=== PATIENT | female | born 1950 | race Caucasian/White ===

== ENCOUNTER 2020-02-13 10:38 | Emergency (ER) | payer MEDICARE ==
[~2020-02-13] VITALS: Ht 167.6 cm; Wt 85.7 kg
--- NOTE | 2020-02-13 12:17 | Emergency Department Note ---
History of Present Illnes History of Present Illness Chief Complaint: Laceration History of Present Illness This is a 69 year old female PATIENT IN FROM [facility]; STATES WAS WALKIN G TO HER CAR AND MISSED A STEP, TRIPPED AND FELL, HITTING HER HEAD ON THE CONCRETE. DENIES LOC, NAUSEA, VOMITING, OR DIZZINESS.. Historian: Patient Arrival Mode: Car Hooker Laster Required: No Onset (how long ago): minute(s) Location: LEFT PERIORBITAL AREA Quality: PAIN Radiation: Reports non-radiation Severity: mild Onset quality: sudden Timing of current episode: constant Progression: unchanged Chronicity: new Context: Denies recent illness Relieving factors: none Exacerbating factors: none Associated symptoms: Reports denies other symptoms Treatments prior to arrival: none Past Medical/Family History Physician Review I have reviewed the patient's past medical and family history. Any updates have been documented here. Past Medical History Recent Fever: No Clinical Suspicion of Infectio: No New/Unexplained Change in Ment: No Past Medical History: GERD, Chronic Back Pain Other Medical History: CHRONIC BRONCHITIS GI ULCERS GI BLEEDING SEASONAL ALLERGIES Other Surgery: BILAT CARPAL TUNNEL Social History Smoking Cessation: Never Smoker Counseling Performed: No Alcohol Use: None Any Illegal Drug Use: No TB Exposure/Symptoms: No Physically hurt or threatened: No Family History Family history of heart diseas: No Other Last Tetanus: UTD Any Pre-Existing Lines (PICC,: No Review of Systems Review of Systems Constitutional: Reports no symptoms EENTM: Reports as per HPI Cardiovascular: Reports no symptoms Respiratory: Reports no symptoms Gastrointestinal: Reports no symptoms Genitourinary: Reports no symptoms Musculoskeletal: Reports back pain (CHRONIC) Integumentary: Reports no symptoms Neurological: Reports no symptoms Psychological: Reports no symptoms Endocrine: Reports no symptoms Hematological/Lymphatic: Reports no symptoms Physical Exam Related Data Allergies: Coded Allergies: Penicillins (Verified Allergy, Mild, 02/13/20) cephalexin (Verified Allergy, Mild, 02/13/20) codeine (Verified Allergy, Mild, 02/13/20) prednisone (Verified Allergy, Mild, 02/13/20) Triage Vital Signs Vital Signs Date Time Temp Pulse Resp B/P (MAP) Pulse Ox O2 Delivery O2 Flow Rate FiO2 02/13/20 10:39 96.3 76 20 175/72 97 Vital signs reviewed: Yes Physical Exam CONSTITUTIONAL Constitutional: Present well-developed, Present well-nourished HENT HENT: Present oropharynx clear/moist, Present oropharynx normal HENT L/R: Present left ext ear normal, Present right ext ear normal EYES Eyes: Reports PERRL, Reports conjunctivae normal, Reports EOM normal, Reports other (SUPRAORBITAL/UPPER LID ECCHYMOSIS, 1.5 CM LINEAR SUPERFICIAL LAC SUPERIOR AND SLIGHTLY LATERAL TO LEFT EYE, ABRASION LATERAL TO LEFT EYE ON UPPER CHEEK, AND PUNCTATE ABRASION TO LEFT UPPER LID); Denies left eye discharge, Denies right eye discharge NECK Neck: Present ROM normal PULMONARY Pulmonary: Present effort normal, Present breath sounds normal CARDIOVASCULAR Cardiovascular: Present regular rhythm, Present heart sounds normal, Present capillary refill normal, Present normal rate GASTROINTESTINAL Abdominal: Present soft, Present nontender, Present bowel sounds normal GENITOURINARY Genitourinary: Present exam deferred SKIN Skin: Present warm, Present dry MUSCULOSKELETAL Musculoskeletal: Present ROM normal NEUROLOGICAL Neurological: Present alert, Present oriented x 3, Present no gross motor or sensory deficits PSYCHOLOGICAL Psychological: Present mood/affect normal, Present judgement normal Results Imaging Imaging results reviewed: Yes Impressions CT BRAIN Impression: 1. Acute left periorbital superficial hematoma. 2. No fractures. 3. No acute intracranial abnormalities. 4. 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 No acute hydrocephalus Signed by: Dr. Arturo Magallon M.D. on 02/13/2020 12:[address]/CT MAXIO FAC/PARANAS WO IMPRESSION: 1. Acute left periorbital superficial hematoma. 2. No fractures. 3. No additional acute maxillofacial abnormalities. 4. Please refer to the head and cervical spine CTs obtained at the same time. Signed by: Dr. Arturo Magallon M.D. on 02/13/2020 12:[address]/CT CERVICAL SPINE WO IMPRESSION: 1. No acute abnormalities. 2. Bones demineralized but no fractures 3. Cannot adequately evaluate for ligament, spinal cord and or vascular abnormalities. 4. Degenerative changes as described. Signed by: Dr. Arturo Magallon M.D. on 02/13/2020 1:[address]/CT LUMBAR SPINE WO IMPRESSION: 1. Bones moderately demineralized. 2. No fractures. 3. Cannot adequately evaluate for conus, cauda equina, ligament or vascular injuries. Chronic degenerative changes: * Degenerated discs, worst right from L2 to L3 and left from L3 to L5 due to a left curvature at L1. * Severe degenerative spinal canal stenosis at L4-5. * Superimposed foraminal stenosis from L1-S1 is worst bilaterally at L1-L2, on the right at L3-4 and bilaterally at L4-5 and at L5-S1. * No disc herniations Signed by: Dr. Arturo Magallon M.D. on 02/13/2020 1:05 PM Procedures Laceration Laceration: Laceration 1 Site: face (LATERAL AND SUPERIOR TO LEFT EYE) Side: left Size (cm): 1.5 Description: linear Depth: simple, single layer Amount of anesthesia (mL): 0 Skin layer closed with: other (SURGICAL GLUE) Number of sutures: 0 Assessment & Plan Medical Decision Making MDM MECHANICAL FALL, LAC TO FACE, LEFT PERIORBITAL SWELLING AND ECCHYMOSIS - CHECK CT FACE, HEAD, C-SPINE. SHE ALSO C/O CHRONIC LBP WITH SCIATICA AND REQUESTS IMAGING - WILL GET CT L SPINE Reassessment Reassessment DC HOME, DERMABOND INSTRUCTIONS, F/U PCP TOMORROW Assessment & Plan Final Impression: (1) Fall (2) Laceration of face (3) Contusion, periorbital Depart Disposition: HOME, SELF-CARE Last Vital Signs Date Time Temp Pulse Resp B/P (MAP) Pulse Ox O2 Delivery O2 Flow Rate FiO2 02/13/20 10:39 96.3 76 20 175/72 97 ROBBIN PEREIRA MD Feb 13, 2020 12:17
--- NOTE | 2020-02-13 12:42 | Diagnostic Imaging Report ---
History:Fall Comparison studies: None Technique: Axial images were obtained from the skull base to the vertex. Coronal and sagittal images reconstructed from the axial data. Dose modulation, iterative reconstruction, and/or weight based adjustment of the mA/kV was utilized to reduce the radiation dose to as low as reasonably achievable. Intravenous contrast: None Findings: Scalp/skull: An acute left periorbital superficial hematoma is not associated with subcutaneous emphysema or with hyperdense foreign bodies. No underlying fractures. Extra-axial spaces: No masses. No fluid collections. Brain sulci: Mildly prominent. 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 The rest of the ventricular system is mildly dilated but there is no acute hydrocephalus. Parenchyma: No abnormal densities No masses, hemorrhage, acute or chronic cortical vascular insults. Sellar/suprasellar region: No abnormalities. Craniocervical junction: Patent foramen magnum. No Chiari one malformation. Impression: 1. Acute left periorbital superficial hematoma. 2. No fractures. 3. No acute intracranial abnormalities. 4. 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 No acute hydrocephalus Signed by: Dr. Arturo Magallon M.D. on 02/13/2020 12:39 PM
--- NOTE | 2020-02-13 12:45 | Diagnostic Imaging Report ---
History:Trauma Comparison studies: None Technique: Axial images were obtained through the maxillofacial region. Coronal and sagittal images reconstructed from the axial data. Dose modulation, iterative reconstruction, and/or weight based adjustment of the mA/kV was utilized to reduce the radiation dose to as low as reasonably achievable. Intravenous contrast: None Findings: Soft tissues: An acute left periorbital superficial hematoma is associated with a punctate superficial air focus consistent with a superficial laceration but no hyperdense foreign bodies. Bones: No fractures or bone abnormalities. Orbits: Globes: Intact Extra or intraconal abnormalities: None. Paranasal sinuses: Clear IMPRESSION: 1. Acute left periorbital superficial hematoma. 2. No fractures. 3. No additional acute maxillofacial abnormalities. 4. Please refer to the head and cervical spine CTs obtained at the same time. Signed by: Dr. Arutro Magallon M.D. on 02/13/2020 12:42 PM
--- NOTE | 2020-02-13 13:08 | Diagnostic Imaging Report ---
History: Fall Comparison studies: None Technique: Axial images were obtained from inferior T9 through the sacrum.. Coronal and sagittal images reconstructed from the axial data. Dose modulation, iterative reconstruction, and/or weight based adjustment of the mA/kV was utilized to reduce the radiation dose to as low as reasonably achievable. Intravenous contrast: None Findings: Number of non-rib bearing vertebral bodies: 5 Alignment: Left curvature centered at L1 is associated with 2 mm retrolisthesis of L1 on L2, 2 mm anterolisthesis of L3 on L4 and 4 mm anterolisthesis of L4 on L5. Soft tissues: No abnormalities. Paraspinal muscles: Unremarkable. Vertebrae: Bones moderately demineralized. No fractures, infection or neoplasm. Degenerative changes: T12-L1: Moderately degenerated disc worse on the right due to the curvature. Patent spinal canal and foramina. No disc herniation. L1-L2: Moderately degenerated disc, worse on the right due to the curvature. Moderate bilateral foraminal stenosis due to endplate osteophytes and a retrolisthesis of L1 on L2. Patent spinal canal. No disc herniation. L2-L3: Mildly degenerated disc. Mild bilateral foraminal stenosis due to a disc bulge and endplate osteophytes. Patent bilateral canal. No disc herniation. L3-L4: Mildly degenerated disc, worse left due to the curvature. Mild spinal canal stenosis and foraminal stenosis, moderate right, mild left, due to a disc bulge, endplate osteophytes and facet arthrosis. No disc herniation. L4-L5: Moderately degenerated disc, worse on the left due to the curvature. Severe spinal canal stenosis and foraminal stenosis, moderate right, severe left is due to an asymmetric disc bulge, endplate osteophytes and facet arthrosis and related to the curvature. No disc herniation. L5-S1: Moderately degenerated disc. Mild spinal canal stenosis but severe bilateral foraminal stenosis is due to a disc bulge, endplate osteophytes and facet arthrosis. No disc herniation. Sacroiliac joints: Mildly degenerated bilaterally. IMPRESSION: 1. Bones moderately demineralized. 2. No fractures. 3. Cannot adequately evaluate for conus, cauda equina, ligament or vascular injuries. Chronic degenerative changes: * Degenerated discs, worst right from L2 to L3 and left from L3 to L5 due to a left curvature at L1. * Severe degenerative spinal canal stenosis at L4-5. * Superimposed foraminal stenosis from L1-S1 is worst bilaterally at L1-L2, on the right at L3-4 and bilaterally at L4-5 and at L5-S1. * No disc herniations Signed by: Dr. Arturo Magallon M.D. on 02/13/2020 1:05 PM
--- NOTE | 2020-02-13 13:09 | Diagnostic Imaging Report ---
History: Fall Comparison studies: None Technique: Axial images were obtained through the cervical region.. Coronal and sagittal images reconstructed from the axial data. Dose modulation, iterative reconstruction, and/or weight based adjustment of the mA/kV was utilized to reduce the radiation dose to as low as reasonably achievable. Intravenous contrast: None Findings: Fractures: None. Soft tissues: No gross abnormalities. Alignment: Reversal of the usual lordosis, centered at C4, is associated with 3 mm retrolisthesis of C4 on C5. No scoliosis. Cervicomedullary junction: No abnormalities. The foramen magnum is patent. Vertebrae: Bones moderately demineralized. No infection or neoplasm. Degenerative changes: * Moderately degenerated discs from C3 through T2. * Bilateral facet arthrosis, worse on the left at C3-3 and T3-4 * Foraminal stenosis from C2 through T1 is worse (moderate) on the left from C2 C4, on the right at C4-5 and on the left at C5-6 and C6-7 C7 due to facet and uncovertebral arthrosis. * Mild spinal canal stenosis at C3-4, moderate at C4-5 due to disc osteophyte complexes. IMPRESSION: 1. No acute abnormalities. 2. Bones demineralized but no fractures 3. Cannot adequately evaluate for ligament, spinal cord and or vascular abnormalities. 4. Degenerative changes as described. Signed by: Dr. Arturo Magallon M.D. on 02/13/2020 1:06 PM
== END 2020-02-13 13:52 | disposition home or self-care (01) ==
LOC: ER 10:38
DX: S01.112A Laceration without foreign body of left eyelid and periocular area, initial encounter (principal); W01.0XXA Fall on same level from slipping, tripping and stumbling without subsequent striking against object, initial encounter; Y93.01 Activity, walking, marching and hiking; Y92.22 Religious institution as the place of occurrence of the external cause; K21.9 Gastro-esophageal reflux disease without esophagitis; M54.9 Dorsalgia, unspecified; G89.29 Other chronic pain
CPT/HCPCS: 70450; 70486; 72125; 72131; 99284

== ENCOUNTER → 2021-09-24 | Day surgery (SDC) | payer MEDICARE ==
[2021-09-21 12:21] LABS: BASOPHILS # (AUTO) 0.1 (0.0-0.1); BASOPHILS % 0.7 % (0.0-1.0); EOSINOPHILS # (AUTO) 0.1 (0.0-0.4); EOSINOPHILS % 1.6 % (0.0-6.0); HEMATOCRIT 36.9 % (34.2-44.1); HEMOGLOBIN 11.7 g/dL (12.0-16.0); LYMPHOCYTES # (AUTO) 0.9 (1.0-3.2); LYMPHOCYTES % 10.4 % (18.0-39.1); MEAN CORPUSCULAR HEMOGLOBIN 30.4 pg (28-32); MEAN CORPUSCULAR HGB CONC 31.7 g/dL (31-35); MEAN CORPUSCULAR VOLUME 95.8 fL (81-99); MONOCYTES # (AUTO) 0.8 (0.2-0.8); MONOCYTES % 9.5 % (4.4-11.3); NEUTROPHILS # (AUTO) 6.9 (2.1-6.9); NEUTROPHILS % 77.3 % (38.7-80.0); PLATELET COUNT 226 x10e3/uL (140-360); RED BLOOD COUNT 3.85 x10e6/uL (3.6-5.1); RED CELL DISTRIBUTION WIDTH 12.3 % (11.7-14.4)
[~2021-09-24] MED LIST: ARAVA20 MG PO; CRESTOR10 MG PO; CYMBALTA30 MG PO; DICLOFENAC SODI75 MG PO; ERGOCAL62.5 MCG PO; GABAPENTIN300 MG PO; HYOSCYAMINE SULFATE 0.5 MG/ML INJ ONE; LEVSIN0.125 MG PO; LIDOCAINE HCL 2% LOCAL INJ 5 ML SDV VIAL INJ ONE; MIDAZOLAM HCL 2 MG/2 ML VIAL ONE; OMEGA 3 1,0001 EACH PO; PLAQUENIL200 MG PO; POVIDONE IODINE 0.05% 0.05 % ML PO ONE; PROPOFOL IV EMULSION 10 MG/ML 20 ML VIAL ONE; PROTONIX20 MG PO; TIZANIDINE PO; VITAMIN B COMPLEX PO; [UNRECOGNIZED DRUG - OTHER] PO
[2021-09-24 11:20] LABS: WBC,FECAL (FECAL LACTOFERRIN) NEGATIVE (NEGATIVE)
[2021-09-24 11:47] VITALS: BP 137/79
[2021-09-25 15:28] LABS: C DIFFICILE TOXIN A&B AMP PROB NEGATIVE (NEGATIVE)
== END | disposition home or self-care (01) ==
LOC: OR 09:21
PROVIDERS: ATTEND Internal Medicine Gastroenterology
DX: K52.9 Noninfective gastroenteritis and colitis, unspecified (principal); Z86.010 Personal history of colon polyps; K57.30 Diverticulosis of large intestine without perforation or abscess without bleeding; K62.89 Other specified diseases of anus and rectum; K64.8 Other hemorrhoids; R63.4 Abnormal weight loss; K21.9 Gastro-esophageal reflux disease without esophagitis; K28.9 Gastrojejunal ulcer, unspecified as acute or chronic, without hemorrhage or perforation; K44.9 Diaphragmatic hernia without obstruction or gangrene; J45.909 Unspecified asthma, uncomplicated; E78.5 Hyperlipidemia, unspecified; M06.9 Rheumatoid arthritis, unspecified; M54.9 Dorsalgia, unspecified; Z88.6 Allergy status to analgesic agent; Z88.1 Allergy status to other antibiotic agents; Z88.0 Allergy status to penicillin; Z88.8 Allergy status to other drugs, medicaments and biological substances; Z01.810 Encounter for preprocedural cardiovascular examination; Z01.812 Encounter for preprocedural laboratory examination; Z20.822 Contact with and (suspected) exposure to COVID-19; Z79.899 Other long term (current) drug therapy; Z86.19 Personal history of other infectious and parasitic diseases
CPT/HCPCS: 36415; 45380; 83630; 83993; 85025; 87045; 87177; 87328; 87493; 93005; J1980; J2001; J2250; J2704; U0002; 45378